=== PATIENT | female | born 1965 | race Caucasian/White ===

== ENCOUNTER 2022-03-01 07:24 | Emergency (ER) | payer OTHER ==
[2022-03-01 07:43] LABS: BASOPHIL 0.3 % (0-2); EOSINOPHIL 2.7 % (0-5); HCT 35.5 % (37.0-47.0); HGB 10.9 g/dl (12.5-16.0); LYMPHOCYTE 27.8 % (15-48); MCH 30.6 pg (25.0-31.0); MCHC 30.7 g/dL (32.0-36.0); MCV 99.7 fL (78.0-100.0); MONOCYTE 7.1 % (0-12); MPV 9.9 fL (6.0-9.5); NEUTROPHIL 61.4 % (41-80); NRBC 0; PLT 263 K/uL (150-400); RBC 3.56 M/uL (4.20-5.40); RDW 15.3 % (11.5-14.0); WBC 11.7 K/uL (4.0-10.5)
[2022-03-01 08:10] LABS: ALBUMIN 3.4 g/dL (3.4-5.0); BILIRUBIN - TOTAL 0.3 mg/dL (0.2-1.0); BUN/CREAT RATIO (CALC) 20.3 RATIO; CREATININE 1.23 mg/dL (0.51-0.95); GLOBULIN (CALCULATION) 2.9 g/dL; POTASSIUM 4.5 mmol/L (3.5-5.1); TOTAL PROTEIN 6.3 g/dL (6.4-8.2)
[2022-03-01 08:53] LABS: INR 0.91 (0.9-1.2); PTT 20.9 SECONDS (24.4-34.7)
[2022-03-01 08:59] LABS: PROTHROMBIN TIME 11.9 SECONDS (11.8-13.4)
[2022-03-01 09:35] LABS: AMPHETAMINES NEGATIVE (NEGATIVE); BARBITURATES NEGATIVE (NEGATIVE); ECSTASY (MDMA) NEGATIVE (NEGATIVE); MARIJUANA (THC) NEGATIVE (NEGATIVE); METHADONE NEGATIVE (NEGATIVE); OPIATES NEGATIVE (NEGATIVE); OXYCODONE NEGATIVE (NEGATIVE)
== END 2022-03-01 14:21 | disposition other institution (70) ==
LOC: FER 07:24
PROVIDERS: Emergency Medicine
DX: I20.8 Other forms of angina pectoris (principal); F41.9 Anxiety disorder, unspecified; I10 Essential (primary) hypertension; J44.9 Chronic obstructive pulmonary disease, unspecified; Z87.891 Personal history of nicotine dependence; Z88.1 Allergy status to other antibiotic agents; Z88.8 Allergy status to other drugs, medicaments and biological substances
CPT/HCPCS: 36415; 70450; 71045; 80053; 80305; 82550; 82553; 84484; 85025; 85610; 85730; 93005; G0480; J1885; J2060; J2270; J2405; J7050